=== PATIENT | female | born 1970 | race Caucasian/White ===

== ENCOUNTER 2018-08-26 11:32 | Emergency (ER) | payer OTHER ==
[~2018-08-26] VITALS: Ht 177.8 cm; Wt 72.1 kg
[2018-08-26 11:36] VITALS: Ht 177.8 cm; Wt 72.1 kg
[2018-08-26 14:13] VITALS: BP 111/64
== END 2018-08-26 14:13 | disposition home or self-care (01) ==
LOC: ED 11:32
DX: S52.571A Other intraarticular fracture of lower end of right radius, initial encounter for closed fracture (principal); W31.89XA Contact with other specified machinery, initial encounter; Y93.89 Activity, other specified; Y92.89 Other specified places as the place of occurrence of the external cause; Y99.0 Civilian activity done for income or pay
CPT/HCPCS: J2001; J2270; J2405; Q0092